=== PATIENT | male | born 1990 | race American Indian/Alaskan Native ===

== ENCOUNTER 2019-09-10 22:11 | Emergency (ER) | payer OTHER ==
[2019-09-11] MEDS ORDERED: dexAMETHasone 20 MG/5 ML VIAL IM ONE (02:30)
[2019-09-11] MEDS ORDERED: PENICILLIN G BENZATHINE 1.2 MILLION UNIT/2 ML INJ IM ONE (02:30)
[2019-09-11] MEDS ORDERED: LIDOCAINE VISCOUS 2% 15 ML ORAL LIQD PO ONE (02:31)
--- NOTE | 2019-09-11 02:31 | Emergency Department Report ---
ED ENT HPI - General Chief complaint: Sore Throat Stated complaint: SORE THROAT Time Seen by Provider: 09/11/19 02:11 Source: patient Mode of arrival: Ambulatory Limitations: No Limitations - History of Present Illness Initial comments: This is a 29-year-old -[place] male on a presents to the emergency room with sore throat and dysphagia for 3 days. Patient states initially had upper respiratory symptoms which she thought was improving with [id number] cold and flu medication. Patient reports his had similar symptoms. Patient st ates it feel like razor blades going down his throat when he swallow. He denies cough, weakness, nausea, vomiting, or myalgia. MD complaint: sore throat Onset/Timin -: days(s) Location: throat Severity: severe Severity scale (0 -10): 10 Quality: aching, constant Improves with: none Worsens with: swallowing, eating Associated Symptoms: fever, pain with swallowing, sore throat. denies: cough, gum swelling, toothache, discharge from ear, rhinorrhea - Related Data Previous Rx's Medication Instructions Recorded Last Taken Type Nystas/Diphen/Xyl Visc/Mylanta 15 ml MM Q4H PRN #100 ml 09/11/19 Unknown Rx [Magic Mouthwash] methylPREDNISolone [Medrol 4MG 4 mg PO DAILY #1 tab.ds.pk 09/11/19 Unknown Rx DOSEPAK (21 tabs)] Allergies Allergy/AdvReac Type Severity Reaction Status Date / Time No Known Allergies Allergy Unverified 09/10/19 22:27 ED Dental HPI - General Chief complaint: Sore Throat Stated complaint: SORE THROAT Time Seen by Provider: 09/11/19 02:11 Source: patient Mode of arrival: Ambulatory Limitations: No Limitations - Related Data Previous Rx's Medication Instructions Recorded Last Taken Type Nystas/Diphen/Xyl Visc/Mylanta 15 ml MM Q4H PRN #100 ml 09/11/19 Unknown Rx [Magic Mouthwash] methylPREDNISolone [Medrol 4MG 4 mg PO DAILY #1 tab.ds.pk 09/11/19 Unknown Rx DOSEPAK (21 tabs)] Allergies Allergy/AdvReac Type Severity Reaction Status Date / Time No Known Allergies Allergy Unverified 09/10/19 22:27 ED Review of Systems ROS: Stated complaint: SORE THROAT Other details as noted in HPI Constitutional: chills, fever ENT: throat pain, congestion. denies: ear pain Respiratory: denies: cough, shortness of breath, wheezing Cardiovascular: denies: chest pain, palpitations Gastrointestinal: denies: abdominal pain, nausea, diarrhea Musculoskeletal: denies: back pain, joint swelling, arthralgia Skin: denies: rash, lesions Neurological: denies: headache, weakness, paresthesias Psychiatric: denies: anxiety, depression ED Past Medical Hx - Past Medical History Previous Medical History?: Yes Hx Asthma: Yes - Surgical History Past Surgical History?: No - Social History Smoking Status: Current Every Day Smoker Substance Use Type: None - Medications Home Medications: Home Medications Medication Instructions Recorded Confirmed Last Taken Type Nystas/Diphen/Xyl Visc/Mylanta 15 ml MM Q4H PRN #100 ml 09/11/19 Unknown Rx [Magic Mouthwash] methylPREDNISolone [Medrol 4MG 4 mg PO DAILY #1 tab.ds.pk 09/11/19 Unknown Rx DOSEPAK (21 tabs)] ED Physical Exam - General Limitations: No Limitations General appearance: alert, in no apparent distress, obese (morbidly) - ENT ENT exam: Present: mucous membranes moist, TM's normal bilaterally, normal external ear exam. Absent: normal orophraynx (erythematous and enlarged tonsils with exudate, uvula midline) - Neck Neck exam: Present: full ROM, lymphadenopathy (anterior cervical, TTP, mobile). Absent: meningismus - Respiratory Respiratory exam: Present: normal lung sounds bilaterally. Absent: respiratory distress - Cardiovascular Cardiovascular Exam: Present: regular rate, normal rhythm. Absent: systolic murmur, diastolic murmur, rubs, gallop - GI/Abdominal GI/Abdominal exam: Present: soft, normal bowel sounds. Absent: distended, tenderness, guarding, rebound, rigid - Neurological Exam Neurological exam: Present: alert, oriented X3, normal gait - Psychiatric Psychiatric exam: Present: normal affect, normal mood - Skin Skin exam: Present: warm, dry, intact, normal color. Absent: rash ED Course Vital Signs 09/10/19 22:37 Temperature 99.8 F H Pulse Rate 100 H Respiratory 18 Rate Blood Pressure 145/118 O2 Sat by Pulse 99 Oximetry Vital Signs 09/10/19 09/11/19 22:37 02:40 Temperature 99.8 F H 100.0 F H Pulse Rate 100 H 99 H Respiratory 18 17 Rate Blood Pressure 145/118 Blood Pressure 153/95 [Left] O2 Sat by Pulse 99 97 Oximetry ED Medical Decision Making - Medical Decision Making This is a 29 y.o. male that presents with sore throat and dysphagia x 3 days. Patient examined by me and stable. No distress noted. Centor score 4 points. Given bicillin I-A, lidocaine, and dexamethasone once in ER. Start medrol dose pack and magic mouthwash. Take Tylenol or ibuprofen for pain. Discussed plan with patient and he agreed with plan to treat outpatient. Discharged home. Return to work tomorrow. Follow up with PCP in 48-72 hours. Critical care attestation.: If time is entered above; I have spent that time in minutes in the direct care of this critically ill patient, excluding procedure time. ED Disposition Clinical Impression: Strep pharyngitis, Acute sore throat Disposition: TO HOME OR SELFCARE Is pt being admited?: No Condition: Stable Instructions: Strep Throat (ED) Additional Instructions: Expect symptoms to improve within 3 or 4 days. There is no need for bed rest or isolation. Use Tylenol or ibuprofen for symptoms of sore throat, headache, and fever. Return to work in 24 hours of taking antibiotics. Follow up with Primary Care Provider in 48-72 hours. Prescriptions: Nystas/Diphen/Xyl Visc/Mylanta [Magic Mouthwash] 15 ml MM Q4H PRN #100 ml PRN Reason: Sore Throat methylPREDNISolone [Medrol 4MG DOSEPAK (21 tabs)] 4 mg PO DAILY #1 tab.ds.pk Referrals: [facility] [Outside] - 3-5 Days [facility] [Outside] - 3-5 Days [facility] [Outside] - 3-5 Days Forms: Work/School Release Form(ED) Time of Disposition: 03:29
[2019-09-11 02:46] VITALS: BP 153/95
== END 2019-09-11 03:41 | disposition home or self-care (01) ==
LOC: ED 22:11
DX: J02.0 Streptococcal pharyngitis (principal); F17.200 Nicotine dependence, unspecified, uncomplicated; J45.909 Unspecified asthma, uncomplicated; Z79.899 Other long term (current) drug therapy
CPT/HCPCS: 96372; 99282; J0561; J1100